=== PATIENT | female | born 2000 | race Caucasian/White ===

== ENCOUNTER 2021-10-30 23:20 | Emergency (ER) | payer OTHER ==
[~2021-10-30] VITALS: Ht 157.5 cm; Wt 70.3 kg
[2021-10-30 23:50] VITALS: BP 136/78
--- NOTE | 2021-10-31 | NUR ---
TO LOBBY FOLLOWING TRIAGE
--- NOTE | 2021-10-31 01:21 | NUR ---
PT RETURN FROM RADIOLOGY
--- NOTE | 2021-10-31 02:08 | NUR ---
Patient ambulated to bed 5.
--- NOTE | 2021-10-31 02:28 | NUR ---
pt ambulate to bathroom
--- NOTE | 2021-10-31 02:29 | NUR ---
21 y.o F BIB SELF FOR RAPID HEART RATE , ALSO SYNCOPAL EPISODE LAST WEEK AND RLQ PAIN /. PT STATED SHE STARTED TO FEEL HER HEART RACE OUT OF NOWHERE. PT STATES THE PAIN RADIATES TO THE BACK SOMETIMES. PT STATES WHEN SHE FAINTED SHE DID NOT HIT HER HEAD. LMP 10/05/21 NKA PT DENIES N/F/V/D. PT DENIES CHEST PAIN BUT HAS SOB WHEN HEART RATE RAISES
[2021-10-31 02:44] LABS: BASOPHILS # (AUTO) 0.1 K/uL (0.00-0.22); BASOPHILS % (AUTO) 0.5 % (0.0-2.0); EOSINOPHILS % (AUTO) 0.1 % (0.0-4.0); HEMATOCRIT 40.8 % (36-48); HEMOGLOBIN 13.9 g/dL (12.0-16.0); LYMPHOCYTES % (AUTO) 22.3 % (20.5-51.1); MEAN CORPUSCULAR HEMOGLOBIN 31 pg (27-31); MEAN CORPUSCULAR HGB CONC 34 g/dL (33-37); MEAN CORPUSCULAR VOLUME 91.5 fL (80-94); MONOCYTES # (AUTO) 0.5 K/uL (0.8-1.0); MONOCYTES % (AUTO) 3.9 % (1.7-9.3); NEUTROPHILS % (AUTO) 73.2 % (42.2-75.2); PLATELET COUNT (AUTO) 364 K/uL (140-450); RED BLOOD CELL COUNT(AUTO) 4.46 MIL/uL (4.20-5.40); RED CELL DISTRIBUTION WIDTH 12.4 % (11.6-13.7); WHITE BLOOD COUNT (AUTO) 13.7 K/uL (4.8-10.8)
[2021-10-31 02:56] LABS: BARBITURATE, URINE NEGATIVE ng/ml (NEG <=200); BENZODIAZEPINE, URINE NEGATIVE ng/mL (NEG <=200); CANNABINOID, URINE POSITIVE ng/mL (NEG <=50); COCAINE, URINE NEGATIVE ng/mL (NEG <=300); OPIATE, URINE NEGATIVE ng/mL (NEG <=2000); PHENCYCLIDINE SCREEN,URINE NEGATIVE ng/mL (NEG <=25)
[2021-10-31 03:07] LABS: ANION GAP 12.6 (8-16); ASPARTATE AMINOTRANSFERASE 14 U/L (15-37); CARBON DIOXIDE 26.1 mmol/L (21-32); CHLORIDE 105 mmol/L (98-107); CREATININE 0.7 mg/dL (0.6-1.3); GFR ARICAN-AMERICAN 136 mL/min (>90); GLUCOSE 110 mg/dL (74-106); POTASSIUM 3.7 mmol/L (3.5-5.1); SODIUM SERUM 140 mmol/L (136-145); TOTAL BILIRUBIN 0.6 mg/dL (0.0-1.0); UREA NITROGEN, BLOOD 12 mg/dL (7-18)
[2021-10-31] MEDS: NACL 0.9% 1,000 ML IV ONE (03:20)
--- NOTE | 2021-10-31 04:00 | NUR ---
pt resting. x2 side rails. vss. all needs met at this time
[2021-10-31 05:05] LABS: APPEARANCE,URINE CLEAR (CLEAR); BILIRUBIN,URINE NEGATIVE (NEGATIVE); BLOOD, URINE NEGATIVE (NEGATIVE); COLOR,URINE YELLOW (YELLOW); LEUKOCYTE ESTERASE ,URINE NEGATIVE (NEGATIVE); NITRITE, URINE NEGATIVE (NEGATIVE); PH,URINE 7.5 (5.0-9.0); UGLUCOSE NEGATIVE (NEGATIVE)
[2021-10-31 05:38] VITALS: BP 116/85
--- NOTE | 2021-10-31 05:38 | NUR ---
Patient discharged with v/s stable. Written and verbal after care instructions given and explained. Patient alert, oriented and verbalized understanding of instructions. Ambulatory with steady gait. All questions addressed prior to discharge. ID band removed. Patient advised to follow up with PMD. Opportunity to ask questions provided and answered.
== END 2021-10-31 05:38 | disposition home or self-care (01) ==
LOC: MED 23:20
DX: R00.2 Palpitations (principal); F12.90 Cannabis use, unspecified, uncomplicated; Z98.890 Other specified postprocedural states
CPT/HCPCS: 36415; 71045; 80053; 80305; 81003; 81025; 84484; 85025; 85379; 93005; 96360; 99285; J7030

== ENCOUNTER 2021-11-25 05:45 | Emergency (ER) | payer OTHER ==
[~2021-11-25] VITALS: Ht 157.5 cm; Wt 75.3 kg
[2021-11-25 05:54] VITALS: BP 102/69
--- NOTE | 2021-11-25 06:36 | NUR ---
Dr. Conley examining patient.
[2021-11-25] MEDS ORDERED: ZOLP5TAB1 PO (06:56)
[2021-11-25 07:04] VITALS: BP 105/74
--- NOTE | 2021-11-25 07:04 | NUR ---
Patient discharged with v/s stable. Written and verbal after care instructions given and explained. Patient alert, oriented and verbalized understanding of instructions. Ambulatory with steady gait. All questions addressed prior to discharge. ID band removed. Patient advised to follow up with PMD. Rx of Jonathon given. Patient educated on indication of medication including possible reaction and side effects. Opportunity to ask questions provided and answered.
== END 2021-11-25 07:04 | disposition home or self-care (01) ==
LOC: MED 05:45
DX: G47.00 Insomnia, unspecified (principal); R00.2 Palpitations
CPT/HCPCS: 93005; 99283